=== PATIENT | female | born 1995 | race Caucasian/White ===

== ENCOUNTER 2017-01-17 14:37 | Emergency (ER) | payer BC ==
[~2017-01-17] VITALS: Wt 73.5 kg
--- NOTE | 2017-01-17 16:52 | ERD ---
ER Documentation Chief Complaint Date/Time DATE: 01/17/17 TIME: 16:47 Chief Complaint NUMBNESS, WEAKNESS AND SLURRED SPEECH 1 HR AGO HPI This is a 21-year-old female that presents to the ER complaining of a pressure- like headache which she has been for the last week. Patient states that today the headache broke, however she began to feel bilateral facial weakness and experienced slurred speech. Patient states that she was eating something and the food however mild secondary to weakness. Patient denies any upper or lower extremity weakness. She denies any trauma. She does not have any fevers or chills. She has not had any cough or cold symptoms. Patient denies any chest pain or shortness of breath. Patient did not lose consciousness, she denies nausea or vomiting. Patient has a past medical history Hereditary Coproporphyria. She is currently being seen by a recreation therapist and recently came back from [facility] in hopes of starting treatment for her genetic disorder. Patient has attacks which consist of labile hypertension, tachycardia, constipation or diarrhea and headaches. Patient has not initiated any treatments thus far and was first diagnosed in 2014. ROS 12 point review of systems was done, all negative except per HPI. Medications Home Meds Reported Medications Lorazepam* (Ativan*) 0.5 Mg Tablet, 0.5 MG PO NEEDED Y for ANXIETY, #30 TAB 01/17/17 Allergies Allergies: Coded Allergies: atenolol (Verified Allergy, Unknown, 01/17/17) bupivacaine (Verified Allergy, Unknown, 01/17/17) cephalexin (Verified Allergy, Unknown, 01/17/17) diltiazem (Verified Allergy, Unknown, 01/17/17) doxazosin (Verified Allergy, Unknown, 01/17/17) lidocaine (Verified Allergy, Unknown, 01/17/17) metoprolol (Verified Allergy, Unknown, 01/17/17) PMhx/Soc Hx Miscellaneous Medical Probl: Yes (porphyria) Physical Exam Vitals Vital Signs Date Time Temp Pulse Resp B/P Pulse Ox O2 Delivery O2 Flow Rate FiO2 01/17/17 18:35 97.9 105 18 133/82 99 Room Air 01/17/17 14:40 98.0 117 18 143/83 99 Physical Exam GENERAL: The patient is well developed and appropriate for usual state of health , in no apparent distress. HEENT: Atraumatic. Conjunctivae are pink. Pupils equal, round, and reactive to light. Extraocular muscles are grossly intact. Bilateral tympanic membranes are clear with no evidence of erythema, bulging or perforation. No sinus tenderness. NECK: C-spine is soft and supple. There is no cervical lymphadenopathy. CHEST: Clear to auscultation bilaterally. There are no rales, wheezes or rhonchi. HEART: Regular rate and rhythm. No murmurs, clicks, rubs or gallops. EXTREMITIES: Equal pulses bilaterally. There is no peripheral clubbing, cyanosis or edema. No focal swelling or erythema. Full range of motion. Grossly neurovascularly intact. NEURO: Alert and oriented. Cranial nerves II through XII are intact. Motor strength in all 4 extremities with 5/5 strength. Sensation grossly intact. Normal speech and gait. Negative [place]. +2 DTRs. SKIN: There is no apparent rash or petechia. The skin is warm and dry. Result Diagram: 01/17/17 1700 01/17/17 1700 Results 24 hrs Laboratory Tests Test 01/17/17 17:00 White Blood Count 13.010^3/ul Red Blood Count 5.0910^6/ul Hemoglobin 13.9g/dl Hematocrit 42.3% Mean Corpuscular Volume 83.1fl Mean Corpuscular Hemoglobin 27.3pg Mean Corpuscular Hemoglobin Concent 32.9g/dl Red Cell Distribution Width 12.3% Platelet Count 63853^3/UL Mean Platelet Volume 10.4fl Neutrophils % 82.6% Lymphocytes % 12.1% Monocytes % 4.5% Eosinophils % 0.0% Basophils % 0.4% Nucleated Red Blood Cells % 0.0/100WBC Neutrophils # 10.810^3/ul Lymphocytes # 1.610^3/ul Monocytes # 0.610^3/ul Eosinophils # 0.010^3/ul Basophils # 0.110^3/ul Nucleated Red Blood Cells # 0.010^3/ul Prothrombin Time 13.1Sec Prothrombin Time Ratio 1.0 INR International Normalized Ratio 0.99 Activated Partial Thromboplast Time 29.4Sec Sodium Level 143mmol/L Potassium Level 4.0mmol/L Chloride Level 105mmol/L Carbon Dioxide Level 26mmol/L Anion Gap 16 Blood Urea Nitrogen 5mg/dl Creatinine 0.59mg/dl Glucose Level 134mg/dl Calcium Level 9.5mg/dl Total Bilirubin 0.2mg/dl Direct Bilirubin 0.00mg/dl Indirect Bilirubin 0.2mg/dl Aspartate Amino Transf (AST/SGOT) 18IU/L Alanine Aminotransferase (ALT/SGPT) 30IU/L Alkaline Phosphatase 61IU/L Total Protein 8.2g/dl Albumin 4.8g/dl Globulin 3.40g/dl Albumin/Globulin Ratio 1.41 Current Medications Medications (Trade) Dose Ordered Sig/Jose Route PRN Reason Start Time Stop Time Status Last Admin Dose Admin Sodium Chloride (NS) 500 ml @ 500 mls/hr Q1H STAT IV 01/17/17 23:02 01/18/17 00:01 Procedures/MDM Patient continues to have severe headache, patient refuses to take Ativan which helps her with her headaches. Mother and patient are concerned about increased intracranial pressure. I discussed this case with my supervising physician Dr. Aldana. Patient will be sent to ER 1 for further evaluation and lumbar puncture. Departure Diagnosis: Primary Impression: Headache Condition: Stable CHANG ADAMS Jan 17, 2017 16:52
--- NOTE | 2017-01-17 17:24 | RADRPT ---
PROCEDURE: CT Brain without contrast. CLINICAL INDICATION: Headache, facial droop, and slurred speech. TECHNIQUE: A CT of the brain without contrast was performed utilizing axial sections from the skul l base through the vertex. The patient was scanned without intravenous contrast enhancement. [place] l and coronal reformatted images were obtained using the data from the axial images. Total exam DLP is 630.20 mGy-cm. CTDIvol is 44.52 mGy. One or more of the following dose reduction techniques we re used: Automated exposure control, adjustment of the mA and/or kV according to patient size, use o f iterative reconstruction technique. COMPARISON: None available FINDINGS: There is normal toribio-white matter differentiation. The ventricles and cisterns are normal. There is no intracranial hemorrhage or space-occupying lesion. There is no skull fracture or lytic lesion. IMPRESSION: 1. Normal noncontrast CT scan of the brain. 2. No intracranial hemorrhage. RPTAT: QQ .Jas Miller MD, MD Date Time Electronically viewed and signed by .Jas Miller MD, on 01/17/2017 17:24 .R/
[2017-01-17 17:29] LABS: BASOPHIL # 0.1 10^3/ul (0.0-0.1); BASOPHILS % 0.4 % (0.0-2.0); HEMATOCRIT 42.3 % (37.0-47.0); HEMOGLOBIN 13.9 g/dl (12.0-16.0); LYMPHOCYTES # 1.6 10^3/ul (0.8-2.9); LYMPHOCYTES % 12.1 % (15.0-51.0); MEAN CORPUSCULAR HEMOGLOBIN 27.3 pg (29.0-33.0); MEAN CORPUSCULAR HGB CONC 32.9 g/dl (32.0-37.0); MEAN CORPUSCULAR VOLUME 83.1 fl (82.0-101.0); MEAN PLATELET VOLUME 10.4 fl (7.4-10.4); MONOCYTE # 0.6 10^3/ul (0.3-0.9); MONOCYTES % 4.5 % (0.0-11.0); NEUTROPHIL # 10.8 10^3/ul (1.6-7.5); NEUTROPHILS % 82.6 % (39.0-77.0); PLATELET COUNT 409 10^3/UL (140-415); RED BLOOD COUNT 5.09 10^6/ul (4.20-5.40); RED CELL DISTRIBUTION WIDTH 12.3 % (11.5-14.5)
[2017-01-17 17:46] LABS: INR 0.99; PARTIAL THROMBOPLASTIN TIME 29.4 Sec (25.0-35.0); PROTIME 13.1 Sec (12.2-14.2)
[2017-01-17 17:47] LABS: ALBUMIN 4.8 g/dl (3.3-4.9); ALBUMIN/GLOBULIN RATIO 1.41; BILIRUBIN,INDIRECT 0.2 mg/dl (0-1.1); BILIRUBIN,TOTAL 0.2 mg/dl (0.2-1.3); CALCIUM 9.5 mg/dl (8.4-10.2); CREATININE 0.59 mg/dl (0.44-1.00); TOTAL PROTEIN 8.2 g/dl (6.1-8.1)
[2017-01-17] MEDS ORDERED: LORA-441 PO (19:30)
[2017-01-17] MEDS ORDERED: SOD CHLORIDE 0.9% 500 ML IV STA (23:02)
[2017-01-17 23:30] VITALS: BP 120/75; PULSE 89; RESP 18; TEMP 97.9
--- NOTE | 2017-01-17 23:53 | ERA ---
ER Documentation Chief Complaint Date/Time DATE: 01/17/17 TIME: 23:51 Chief Complaint NUMBNESS, WEAKNESS AND SLURRED SPEECH 1 HR AGO HPI This is a 21-year-old female with a past medical history of significant anxiety , migraines, chronic abdominal pain, recently diagnosed with hereditary coproporphyria who presents with sharp waxing waning pressure-like bilateral frontal headache, worst headache of her life, beginning about a week ago. The patient reports that it started with a horrible headache, and it has not gone away. Sometimes it improves on its own, but it recurs shortly after. Today, that patient felt that perhaps it was waning. However, she then began to feel bilateral facial weakness and numbness, and she experienced an episode of slurred speech. Patient states that she was eating something and almost choked secondary to weakness. The bilateral facial deficits lasted only a few minutes before remitting on their own, after which the headache recurred. It was at this point that she and her mother felt she needed evaluation in the ER. The patient denies any trauma. She does not have any fevers or chills. She has not had any cough or cold symptoms. Patient denies any chest pain or shortness of breath. Patient did not lose consciousness. She does endorse chronic abdominal pain that is currently unchanged, but she denies nausea or vomiting. She did not have any other focal deficits and she currently denies any weakness or numbness or tingling to the face or extremities. Patient's diagnosis of hereditary Coproporphyria has been recent. She is currently being seen by a surgical technology instructor and recently came back from [facility] in hopes of starting treatment for her genetic disorder. Patient has attacks which consist of labile hypertension, tachycardia, constipation or diarrhea and headaches. Patient has not initiated any treatments thus far and was first diagnosed in 2014. She was actually scheduled to be evaluated by her surgical technology instructor today when these symptoms above occurred and the headaches seem to get worse. ROS All systems reviewed and are negative except as per history of present illness. Medications Home Meds Reported Medications Lorazepam* (Ativan*) 0.5 Mg Tablet, 0.5 MG PO NEEDED Y for ANXIETY, #30 TAB 01/17/17 Allergies Allergies: Coded Allergies: atenolol (Verified Allergy, Unknown, 01/17/17) bupivacaine (Verified Allergy, Unknown, 01/17/17) cephalexin (Verified Allergy, Unknown, 01/17/17) diltiazem (Verified Allergy, Unknown, 01/17/17) doxazosin (Verified Allergy, Unknown, 01/17/17) lidocaine (Verified Allergy, Unknown, 01/17/17) metoprolol (Verified Allergy, Unknown, 01/17/17) PMhx/Soc Hx Neurological Disorder: Yes (Migraines) Hx Respiratory Disorders: No Hx Cardiac Disorders: Yes (Hypertension) Hx Psychiatric Problems: Yes (Anxiety) Hx Miscellaneous Medical Probl: Yes (porphyria) Hx Alcohol Use: No Hx Substance Use: No Hx Tobacco Use: No FmHx Family History: No coronary disease, No diabetes Physical Exam Vitals Vital Signs Date Time Temp Pulse Resp B/P Pulse Ox O2 Delivery O2 Flow Rate FiO2 01/17/17 18:35 97.9 105 18 133/82 99 Room Air 01/17/17 14:40 98.0 117 18 143/83 99 Physical Exam Const: NAD, well developed, well-nourished Head: Atraumatic Eyes: Normal Conjunctiva, EOMI, no photophobia examination with light ENT: Normal External Ears, Nose and Mouth. Neck: Full range of motion..~ No meningismus. Resp: Clear to auscultation bilaterally Cardio: Regular rate and rhythm, no murmurs Abd: Soft, non tender, non distended. Normal bowel sounds Skin: No petechiae or rashes Back: No midline or flank tenderness Ext: No cyanosis, or edema Neur: Awake and alert, cranial nerves intact, normal strength, normal sensation, normal coordination Psych: Anxious appearing Result Diagram: 01/17/17 1700 01/17/17 170 Results 24 hrs Laboratory Tests Test 01/17/17 17:00 White Blood Count 13.010^3/ul Red Blood Count 5.0910^6/ul Hemoglobin 13.9g/dl Hematocrit 42.3% Mean Corpuscular Volume 83.1fl Mean Corpuscular Hemoglobin 27.3pg Mean Corpuscular Hemoglobin Concent 32.9g/dl Red Cell Distribution Width 12.3% Platelet Count 97025^3/UL Mean Platelet Volume 10.4fl Neutrophils % 82.6% Lymphocytes % 12.1% Monocytes % 4.5% Eosinophils % 0.0% Basophils % 0.4% Nucleated Red Blood Cells % 0.0/100WBC Neutrophils # 10.810^3/ul Lymphocytes # 1.610^3/ul Monocytes # 0.610^3/ul Eosinophils # 0.010^3/ul Basophils # 0.110^3/ul Nucleated Red Blood Cells # 0.010^3/ul Prothrombin Time 13.1Sec Prothrombin Time Ratio 1.0 INR International Normalized Ratio 0.99 Activated Partial Thromboplast Time 29.4Sec Sodium Level 143mmol/L Potassium Level 4.0mmol/L Chloride Level 105mmol/L Carbon Dioxide Level 26mmol/L Anion Gap 16 Blood Urea Nitrogen 5mg/dl Creatinine 0.59mg/dl Glucose Level 134mg/dl Calcium Level 9.5mg/dl Total Bilirubin 0.2mg/dl Direct Bilirubin 0.00mg/dl Indirect Bilirubin 0.2mg/dl Aspartate Amino Transf (AST/SGOT) 18IU/L Alanine Aminotransferase (ALT/SGPT) 30IU/L Alkaline Phosphatase 61IU/L Total Protein 8.2g/dl Albumin 4.8g/dl Globulin 3.40g/dl Albumin/Globulin Ratio 1.41 Current Medications Medications (Trade) Dose Ordered Sig/Jose Route PRN Reason Start Time Stop Time Status Last Admin Dose Admin Sodium Chloride (NS) 500 ml @ 500 mls/hr Q1H STAT IV 01/17/17 23:02 01/18/17 00:01 DC Procedures/MDM MDM Patient's presentation warrants further investigation. The patient is presenting with the worst headache of her life with a transient episode of neurologic deficits today. A full workup will need to be performed. The patient does not endorse a thunderclap like headache that was the worst headache of her life immediately on onset. However, the patient is significantly concerned as she has had many headaches in the past related to her migraines, but that this 1 feels quite different. She does not have any current neurologic deficits, but this episode was concerning. Complex migraine is a possibility, but it is a diagnosis of exclusion. Given the patient's diagnosis of porphyria, transient vasospasm is a possibility as well. A CT will be obtained to evaluate for any signs of ischemia. Blood work will be obtained to evaluate for infection or metabolic abnormality. If the patient's CT scan is negative, I will recommend a lumbar puncture for evaluation of subarachnoid hemorrhage versus infection. LABS The patient's blood work was obtained and reviewed. Patient does have a leukocytosis with mild shift. The patient is afebrile, and I do not suspect a systemic infection. The patient does not appear systemically ill. The patient' s leukocytosis may be reactive given her stress of a headache. She will be given precautions regarding infectious signs to follow-up on. The patient is not anemic today. The patient's platelet count is unremarkable. The patient's CMP shows no signs of metabolic or electrolyte abnormality. The patient has normal renal and hepatic function testing. The patient has no signs of coagulopathy in her blood work. EKG EKG read by me: Rate/Rhythm: Regular rhythm, sinus tachycardia at a rate of 109 bpm Intervals: Normal [place]: Normal T-wave inversions in leads V1 and V2 but no other ST or T-wave changes concerning for acute coronary syndrome Impression: No evidence of acute ischemia IMAGING CT HEAD FINDINGS: There is normal toribio-white matter differentiation. The ventricles and cisterns are normal. There is no intracranial hemorrhage or space-occupying lesion. There is no skull fracture or lytic lesion. IMPRESSION: Normal noncontrast CT scan of the brain. No intracranial hemorrhage. Electronically viewed and signed by .Jas Miller MD, MD on 01/17/2017 17:24 TREATMENT/DISPOSITION Aside from her leukocytosis, which I believed to be reactive, her blood work is reassuring. Her CT imaging is also reassuring. The patient's EKG shows sinus tachycardia but otherwise it shows no signs of a cardiac etiology. The patient does have a history of anxiety and she appears quite anxious in the room. She was offered Ativan but she declined. Found out later that the patient took a half dose of her own oral Ativan while in the emergency department. She was offered medications for her headache, but she declined these as well. She even refused Tylenol. The patient has had many reactions to medications in the past related to her porphyria, and she is hesitant to try anything to help with the pain. It is strange that the symptoms arose on the same day as her follow-up appointment with her surgical technology instructor. It is unclear if there could be a psychiatric component to this. After the patient took the Ativan, her tachycardia resolved and her headache improved mildly. Objectively, the patient does not have any findings consistent with a neurologic deficit at this time, which is reassuring. Her reported transient facial deficits could very well correlate with complex migraine. The patient's mother does endorse having symptoms similar to that, but she has never seen them and her daughter. A prolonged discussion was had regarding the need to do an LP. Given that the patient felt that this headache was different than the worst of her life, and LP was recommended. The risks and benefits were discussed with the patient and she agreed to proceed with the procedure. Lumbar Puncture by me: Patient consented, time out performed, sterilely prepped/draped, anesthetized locally. Anesthesia: Patient declined Location: One interspace below the iliac crest Technique: 22 gauge needle with stylet for entry and removal of needle Results: Clear CSF fluid, approximately 6 mL were collected and a total of 4 tubes No post procedure complications, bleeding, numbness or weakness. At time of signout, the patient's disposition was pending the results of her lumbar puncture. Given that the patient had neurologic deficits, I felt that the patient should be at minimum observed during a hospital admission with possible neurologic consultation and potentially obtaining an MRI in the hospital for further evaluation. The patient and the patient's mother declined at this time. They decided that as long as the CSF results were normal that they would follow-up with her neurologist as well as her surgical technology instructor first thing tomorrow. The patient and her mother understand that a transient ischemic attack or seizure or other possible neurologic etiologies cannot all be elucidated in the emergency department, and the risk of is present without further evaluation to rule out other emergent etiologies. With this understanding, the patient and her mother would like to leave AGAINST MEDICAL ADVICE as long as the CSF results are unremarkable. The patient was signed out to Dr. Villegas at 12 AM on January 18, 2017 pending the CSF results. Departure Diagnosis: Primary Impression: Headache Additional Impression: Leukocytosis Qualified Code: D72.820 - Lymphocytosis Condition: LEANN Li MD Jan 17, 2017 23:53
[2017-01-18 00:16] LABS: GLUCOSE,CSF 79 mg/dl (50-80)
[2017-01-18 00:25] LABS: CSF COLOR COLORLESS; CSF#TUBE COUNT TUBE#1; CSF#TUBES REC'D 4
[2017-01-18 00:26] LABS: CSF COLOR COLORLESS; CSF#TUBE COUNT TUBE#4; CSF#TUBES REC'D 4
--- NOTE | 2017-01-18 00:31 | QN ---
Documentation Comment The patient was signed out to me by Dr Aldana, pending on the CSF fluid analysis. However, the patient eloped from the ED prior to the result. She was in stable condition according to the RN JOLENE MCCORMICK MD Jan 18, 2017 00:31
[2017-01-21 06:02] LABS: HERPES SIMPLEX 1 DNA NOT DETECTED; HERPES SIMPLEX 2 DNA NOT DETECTED; HERPES SIMPLEX PCR SOURCE CEREBROSPINAL FLUID
== END 2017-01-18 | disposition left against medical advice (07) ==
LOC: FTE 14:37 → E/R 01-18
DX: R51 Headache (principal); R40.2252 Coma scale, best verbal response, oriented, at arrival to emergency department; D72.820 Lymphocytosis (symptomatic); I10 Essential (primary) hypertension; R40.2142 Coma scale, eyes open, spontaneous, at arrival to emergency department; R40.2362 Coma scale, best motor response, obeys commands, at arrival to emergency department
CPT/HCPCS: 36415; 70450; 80053; 82945; 84157; 85025; 85610; 85730; 87070; 87529; 89051; 93005; 99285; J7040

== ENCOUNTER 2017-01-18 02:07 | Inpatient (IN) | payer BC ==
[~2017-01-18] VITALS: Ht 165.1 cm; Wt 73.4 kg
[~2017-01-18 02:07] MED LIST: LORA-441 PO
--- NOTE | 2017-01-18 02:18 | ERA ---
ER Documentation Chief Complaint Date/Time DATE: 01/18/17 TIME: 02:16 Chief Complaint Headache HPI The patient is a 21-year-old female, presenting with intermittent headache for 1 week. The headache is diffuse on the top of her head, she had similar symptoms previously. She complained of having had a slurred speech at around 1: 30 PM today for 1-2 minutes and resolved by itself while she was on her way to see her protection engineer for treatment of her porphyria. She was seen by the emergency physician Dr. Aldana to order extensive workup that was unremarkable including spinal tap. She is eloped from the ER after the spinal tap. She came back to the ER because of worsening headache after the spinal tap. She denies fever, chills, blurry vision, neck pain, chest pain, abdominal pain, vomiting, dysuria. She, multiple loose bowel movement today, denies hematochezia. She does not smoke nor drink nor use illicit drug, however has increased stress in her life. Past medical history: Anxiety, porphyria, tension headache, history of chronic abdominal pain Past surgical history: None ROS All systems reviewed and are negative except as per history of present illness. Medications Home Meds Reported Medications Lorazepam* (Ativan*) 0.5 Mg Tablet, 0.5 MG PO NEEDED Y for ANXIETY, #30 TAB 01/17/17 Allergies Allergies: Coded Allergies: atenolol (Verified Allergy, Unknown, 01/17/17) bupivacaine (Verified Allergy, Unknown, 01/17/17) cephalexin (Verified Allergy, Unknown, 01/17/17) diltiazem (Verified Allergy, Unknown, 01/17/17) doxazosin (Verified Allergy, Unknown, 01/17/17) lidocaine (Verified Allergy, Unknown, 01/17/17) metoprolol (Verified Allergy, Unknown, 01/17/17) PMhx/Soc Hx Neurological Disorder: Yes (Migraines) Hx Respiratory Disorders: No Hx Cardiac Disorders: Yes (Hypertension) Hx Psychiatric Problems: Yes (Anxiety) Hx Miscellaneous Medical Probl: Yes (porphyria) Hx Alcohol Use: No Hx Substance Use: No Hx Tobacco Use: No Physical Exam Vitals Vital Signs Date Time Temp Pulse Resp B/P Pulse Ox O2 Delivery O2 Flow Rate FiO2 01/18/17 02:17 97.8 103 20 138/84 100 Physical Exam Const: No acute distress. Head: Atraumatic. Eyes: Normal Conjunctiva. ENT: Normal External Ears, Nose and Mouth. Neck: Full range of motion. No meningismus. Resp: Clear to auscultation bilaterally. Cardio: Regular rate and rhythm. Abd: Soft, non distended, normal bowel sounds, non tender. Skin: No petechiae or rashes. Back: No midline or flank tenderness. Ext: No cyanosis, or edema. Neur: Awake and alert. No focal deficit Psych: Normal Mood and Affect. Results 24 hrs Current Medications Medications (Trade) Dose Ordered Sig/Jose Route PRN Reason Start Time Stop Time Status Last Admin Dose Admin Acetaminophen/ Hydrocodone Bitart ([place] (10/325)) 1 tab ONCE ONCE PO 01/18/17 03:00 01/18/17 03:01 Cancel Ondansetron HCl (Zofran Odt) 4 mg ONCE STAT ODT 01/18/17 02:37 01/18/17 02:38 Cancel Acetaminophen (Tylenol Tab) 650 mg ONCE ONCE PO 01/18/17 03:00 01/18/17 03:01 DC 01/18/17 02:47 Lorazepam (Ativan) 1 mg ONCE ONCE PO 01/18/17 03:00 01/18/17 03:01 DC 01/18/17 02:47 Procedures/MDM . MEDICAL MAKING DECISION: The patient is a 21-year-old female, presenting with post spinal tap headache. She was treated with Tylenol because she did not want anything stronger she was also treated with Ativan 1 mg p.o. for her acute anxiety with good response. She will be admitted for further evaluation The differential diagnoses considered include but are not limited to viral/ bacterial meningitis, anxiety attack, panic attack, acute porphyria, subarachnoid hemorrhage, occult trauma, CVA, meningitis, encephalitis, hypertension, tension, migraine, cluster, narcotic withdrawal, cervical spine disease. Departure Diagnosis: Primary Impression: Headache Additional Impressions: Anxiety Porphyria Condition: Stable Comments I discussed the findings with the patient. I discussed the patient with The on- call hospitalist Dr. Bennett at 3:05 AM who was made aware of the lab, the treatment, the patient condition. The patient is admitted to [facility] The patient's blood pressure was elevated (>120/80) but appears stable without evidence of hypertension emergency or urgency. The patient was counseled about the risks of hypertension and urged to pursue outpatient monitoring and therapy within a week with their primary care physician. JOLENE MCCORMICK MD Jan 18, 2017 02:18
[2017-01-18] MEDS ORDERED: ONDANSETRON (ODT) 4 MG TAB ODT STA (02:37)
[2017-01-18] MEDS ORDERED: HYDROCODONE/APAP (10/325) TAB PO ONE (03:00)
[2017-01-18] MEDS ORDERED: ACETAMINOPHEN 325 MG TAB PO ONE (03:00)
[2017-01-18] MEDS ORDERED: LORAZEPAM 1 MG TAB PO ONE (03:00)
[2017-01-18 04:00] VITALS: BP 122/73; RESP 21; TEMP 97.8
[2017-01-18] MEDS ORDERED: BISACODYL (EC) 5 MG TAB PO PRN (04:00)
[2017-01-18] MEDS ORDERED: ACETAMINOPHEN 325 MG TAB PO PRN (04:00)
[2017-01-18] MEDS ORDERED: DOCUSATE SODIUM 100 MG CAP PO PRN (04:00)
[2017-01-18] MEDS ORDERED: HYDROCODONE/APAP (5/325) TAB PO PRN (04:00)
[2017-01-18] MEDS ORDERED: ONDANSETRON 4 MG INJ IV PRN (04:00)
[2017-01-18] MEDS ORDERED: NACL 0.9% 3 ML SYG IV SCH (04:00)
--- NOTE | 2017-01-18 07:42 | HP ---
Date/Time of Note Date/Time of Note DATE: 01/18/17 TIME: 07:24 Assessment/Plan VTE Prophylaxis VTE Prophylaxis Intervention: SCD's Assessment/Plan Chief Complaint/Hosp Course this is a 21-year-old female being admitted to the [facility] floor for: #1 cephalgia: Post lumbar headache versus anxiety versus tension headache: CSF sample from lumbar puncture did not show any signs concerning for any infection. Patient reportedly received relief from Ativan which does make this a possible anxiety component. She is adamant that it is her Procardia this causing the symptoms. She did report neurological symptoms will also obtain an MRI in the a.m. Will provide oral analgesics for possible post lumbar headache. If the headaches continue she may need a blood patch placed. I do feel though that there is a lot of anxiety involved in this especially when she describes headaches with tachycardia and elevated blood pressure. Consider neurology consult. Caffeine was also on an alternative to try however patient reports that she may be have headache secondary to that so we will hold off on using caffeine. #2 hereditary porphyria: Follow-up with hematology as an outpatient. #3 leukocytosis: Patient does not have any fevers at this time and CSF findings are within normal values. And in no other signs for any infection. This likely is reactive. Will continue to monitor this. #4 DVT and GI prophylaxis: SCDs, acid mary Further treatment strategy will be implemented as per the clinical course. Problems: HPI/ROS Admit Date/Time Admit Date/Time Jan 18, 2017 at 03:07 Hx of Present Illness History was obtained from the patient as well as the ED physician documentation Chief complaint: Headache The patient is a 21-year-old female, presenting with intermittent headache for 1 week. The headache is diffuse on the top of her head, she had similar symptoms previously. She complained of having had a slurred speech and masked facies at around 1:30 PM on 01/17 for 1-2 minutes and resolved by itself while she was on her way to see her pathology collector for treatment of her porphyria. She was seen by the emergency physician Dr. Aldana to order extensive workup that was unremarkable including spinal tap. She is eloped from the ER after the spinal tap. She came back to the ER because of worsening headache after the spinal tap. She denies fever, chills, blurry vision, neck pain, chest pain, abdominal pain, vomiting, dysuria. She, multiple loose bowel movement today, denies hematochezia. She does not smoke nor drink nor use illicit drug, however has increased stress in her life. Of note patient states that her symptoms usually resolve with Ativan that she does take at home. She received Ativan in the ED as well and that helped with her headache. Allergies: Atenolol, bupivacaine, cephalexin, diltiazem, doxazosin, lidocaine, metoprolol Medications: See LAURA JEFFERSON Const: As per HPI Eyes : No pain discharge or redness or change in visual acuity ENT: No pain, sore throat, congestion, congestion, dysphagia or discharge Respiratory: No shortness of breath, cough, sputum, wheezing, or pleuritic pain Cardiovascular: No chest pain, palpitation, PND, or edema GI : no change in appetite, abdominal pain, nausea, vomiting, diarrhea, constipation, or change in the color his stool Genitourinary: No dysuria, hematuria, flank pain , discharge or CVA tenderness Musculoskeletal: No joint pain, back pain, neck pain, restricted range of motion in neck or joints Skin: No rash, bruising or hives Neuro: As per HPI Endocrine: No polyuria, polydipsia, temperature intolerance Psych: No hallucination, depression, anxiety or suicidal ideation PMH/Family/Social Past Medical History Anxiety, hereditary porphyria, tension headache, history of chronic abdominal pain Past Surgical History Right hand cyst removal Family History Significant Family History: other (Hereditary porphyria) Social History Alcohol Use: none Smoking Status: Never smoker Drug Use: none Exam/Review of Systems Vital Signs Vitals Vital Signs Date Time Temp Pulse Resp B/P Pulse Ox O2 Delivery O2 Flow Rate FiO2 01/18/17 04:00 97.8 91 18 112/65 98 Room Air Exam Exam General: Patient is a pleasant female was lying in bed initially sleeping comfortably, she was easily arousable and pleasant HEENT: Atraumatic, normocephalic. The pupils are equal, round and reactive. Extraocular motor are intact Neck: Supple with full range of motion. No rigidity or meningismus Lungs: Clear to auscultation bilaterally no crackles rales or wheezing Heart: Normal S1-S2, Regular rhythm and rate. No murmur, S3, or S4 Abdomen: Soft , nontender, nondistended , bowel sounds are present. No guarding no rebound tenderness , No masses or organomegaly. No costovertebral temporal angle mass Extremities: Normal to inspection, no edema no cyanosis Neurologic: Normal mental status, speech normal, cranial nerves II through XII are intact, motor and sensory are intact, no focal weakness Additional Comments PROCEDURE: CT Brain without contrast. CLINICAL INDICATION: Headache, facial droop, and slurred speech. TECHNIQUE: A CT of the brain without contrast was performed utilizing axial sections from the skull base through the vertex. The patient was scanned without intravenous contrast enhancement. Sagittal and coronal reformatted images were obtained using the data from the axial images. Total exam DLP is 630.20 mGy-cm. CTDIvol is 44.52 mGy. One or more of the following dose reduction techniques were used: Automated exposure control, adjustment of the mA and/or kV according to patient size, use of iterative reconstruction technique. COMPARISON: None available FINDINGS: There is normal toribio-white matter differentiation. The ventricles and cisterns are normal. There is no intracranial hemorrhage or space-occupying lesion. There is no skull fracture or lytic lesion. IMPRESSION: 1. Normal noncontrast CT scan of the brain. 2. No intracranial hemorrhage. RPTAT: QQ .Jas Miller MD, MD Date Time Electronically viewed and signed by .Jas Miller MD, MD on 01/17/2017 17:24 .R/ CC: CHANG ADAMS Medications Medications Current Medications Ondansetron HCl (Zofran Inj) 4 mg Q6H PRN IV NAUSEA AND/OR VOMITING; Start at 04:00 Acetaminophen (Tylenol Tab) 650 mg Q6H PRN PO PAIN LEVEL 1-3 OR FEVER; Start at 04:00 Acetaminophen/ Hydrocodone Bitart ([place] (5/325)) 1 tab Q6H PRN PO MODERATE PAIN LEVEL 4-6; Start 01/18/17 at 04:00 Docusate Sodium (Colace) 100 mg Q12H PRN PO CONSTIPATION; Start 01/18/17 at 04: 00 Bisacodyl (Dulcolax) 5 mg DAILY PRN PO CONSTIPATION; Start 01/18/17 at 04:00 Famotidine (Pepcid) 20 mg Q12 PO ; Start 01/18/17 at 09:00 PRATIK VIZCAINO Jan 18, 2017 07:36
[2017-01-18 08:30] VITALS: Ht 165.1 cm; Wt 73.4 kg
[2017-01-18] MEDS: FAMOTIDINE 20 MG TAB PO SCH ×2 (08:42→20:26)
[2017-01-18 09:15] VITALS: BP 125/75; PULSE 97; RESP 16
[2017-01-18] MEDS: LORAZEPAM 0.5 MG TAB PO PRN ×2 (10:22→20:29)
[2017-01-18 14:54] VITALS: BP 111/70; RESP 16
--- NOTE | 2017-01-18 15:27 | CONS ---
Date/Time of Note Date/Time of Note DATE: 01/18/17 TIME: 15:20 Assessment/Plan Assessment/Plan Chief Complaint/Hosp Course Intermittent headaches in a patient of Porphyria Problems: Additional Assessment/Plan The patient is a 21-year-old female, presenting with intermittent headache for 1 week. The headache is diffuse on the top of her head, she had similar symptoms previously. She complained of having had a slurred speech and masked facies at around 1:30 PM on 01/17 for 1-2 minutes and resolved by itself while she was on her way to see her archival studies professor for treatment of her porphyria. She was brought into emergency room by her mother and extensive workup that was unremarkable including spinal tap. She eloped from the ER after the spinal tap. She came back to the ER because of worsening headache after the spinal tap. She denies fever, chills, blurry vision, neck pain, chest pain, abdominal pain, vomiting, dysuria. Of note is that her symptoms usually resolve with Ativan that she does take at home. She received Ativan in the ED as well and that helped with her headache. CT scan of the brain was unremarkable. Neurological examination is nonfocal. My impression is that she likely has anxiety and possibly stress related headaches. Plan 1 we will check MRI of the brain which was done today 2 start on nortriptyline 10 mg 1 capsule p.o. nightly as a headache prophylaxis 3 discussed with patient's mother who is present in the room 4 will follow Consultation Date/Type/Reason Admit Date/Time Jan 18, 2017 at 03:07 Date of Consultation: Jan 18, 2017 Type of Consultation: Neurology Reason for Consultation Headache Referring Provider: JAMIR FARIA MD Hx of Present Illness The patient is a 21-year-old female, presenting with intermittent headache for 1 week. The headache is diffuse on the top of her head, she had similar symptoms previously. She complained of having had a slurred speech and masked facies at around 1:30 PM on 01/17 for 1-2 minutes and resolved by itself while she was on her way to see her archival studies professor for treatment of her porphyria. She was brought into emergency room by her mother and extensive workup that was unremarkable including spinal tap. She eloped from the ER after the spinal tap. She came back to the ER because of worsening headache after the spinal tap. She denies fever, chills, blurry vision, neck pain, chest pain, abdominal pain, vomiting, dysuria. Of note is that her symptoms usually resolve with Ativan that she does take at home. She received Ativan in the ED as well and that helped with her headache. CT scan of the brain was unremarkable. Constitutional: improved Eyes: no complaints ENT: no complaints Respiratory: no complaints Cardiovascular: no complaints Gastrointestinal: no complaints Genitourinary: no complaints Musculoskeletal: no complaints Skin: no complaints Neurologic: no complaints Endocrine: no complaints Lymphatic: no complaints Psychological: nl mood/affect, no complaints Immunologic: no complaints Past Medical History Medical History: other (Porphyria) Social History Alcohol Use: none Smoking Status: Never smoker Drug Use: none Exam/Review of Systems Vital Signs Vitals Vital Signs Date Time Temp Pulse Resp B/P Pulse Ox O2 Delivery O2 Flow Rate FiO2 01/18/17 14:54 97.6 81 16 111/70 96 01/18/17 09:15 Room Air Exam Constitutional: alert, oriented, well developed Psych: nl mood/affect, no complaints Head: atraumatic, normocephalic Eyes: EOMI, nl conjunctiva, nl lids ENMT: nl external ears & nose, nl lips & teeth, nl nasal mucosa & septum Neck: non-tender, supple Respiratory: clear to auscultation, normal air movement Cardiovascular: nl pulses, regular rate and rhythm Gastrointestinal: nl liver, spleen, non-tender, soft Extremities: normal pulses Neurological: 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 intact, nl mental status, nl speech, nl strength Skin: nl turgor, rash or lesions Lymph: nl lymph nodes Medications Medications Current Medications Ondansetron HCl (Zofran Inj) 4 mg Q6H PRN IV NAUSEA AND/OR VOMITING; Start at 04:00 Acetaminophen (Tylenol Tab) 650 mg Q6H PRN PO PAIN LEVEL 1-3 OR FEVER; Start at 04:00 Acetaminophen/ Hydrocodone Bitart ([place] (5/325)) 1 tab Q6H PRN PO MODERATE PAIN LEVEL 4-6; Start 01/18/17 at 04:00 Docusate Sodium (Colace) 100 mg Q12H PRN PO CONSTIPATION; Start 01/18/17 at 04: 00 Bisacodyl (Dulcolax) 5 mg DAILY PRN PO CONSTIPATION; Start 01/18/17 at 04:00 Famotidine (Pepcid) 20 mg Q12 PO ; Start 01/18/17 at 09:00 DOROTEO DOLAN MD Jan 18, 2017 15:27
--- NOTE | 2017-01-18 16:20 | PN ---
Date/Time of Note Date/Time of Note DATE: 01/18/17 TIME: 16:14 Assessment/Plan VTE Prophylaxis VTE Prophylaxis Intervention: ambulation Lines/Catheters IV Catheter Type (from Nrs): Saline Lock Urinary Cath still in place: No Assessment/Plan Assessment/Plan 1. Intractable headache - Patient states she has had a CRUM since prior to admission and has worsened since LP was performed - Usually takes Ativan for relief - Neurology on board and recommendations appreciated. - MRI performed and awaiting results - CT scan negative for any acute abnormalities - Amitriptyline started 2. Hereditary Porphyria - Mother concerned patient is in an acute exacerbation - Heme on board and appreciated consultation 3. Dysphagia - Will order swallow eval for further assessment 4. Leukocytosis - Most likely reactive. will follow Subjective 24 Hr Interval Summary Free Text/Dictation patient states she has been experiencing worsening headache as well as difficulty swallowing. She has generalized weakness as well. Parents at bedside. Exam/Review of Systems Vital Signs Vitals Vital Signs Date Time Temp Pulse Resp B/P Pulse Ox O2 Delivery O2 Flow Rate FiO2 01/18/17 14:54 97.6 81 16 111/70 96 01/18/17 09:15 Room Air Exam General: NAD, awake and alert CVS: regular rate and rhythm. no murmurs Lungs: CTA b/l. no wheezes or rhonchi Abdomen: soft NT, ND, no rebound or guarding Ext: moving all extremities. no edema Medications Medications Current Medications Ondansetron HCl (Zofran Inj) 4 mg Q6H PRN IV NAUSEA AND/OR VOMITING; Start at 04:00 Acetaminophen (Tylenol Tab) 650 mg Q6H PRN PO PAIN LEVEL 1-3 OR FEVER; Start at 04:00 Acetaminophen/ Hydrocodone Bitart ([place] (5/325)) 1 tab Q6H PRN PO MODERATE PAIN LEVEL 4-6; Start 01/18/17 at 04:00 Docusate Sodium (Colace) 100 mg Q12H PRN PO CONSTIPATION; Start 01/18/17 at 04: 00 Bisacodyl (Dulcolax) 5 mg DAILY PRN PO CONSTIPATION; Start 01/18/17 at 04:00 Famotidine (Pepcid) 20 mg Q12 PO ; Start 01/18/17 at 09:00 Nortriptyline HCl (Aventyl) 10 mg HS PO ; Start 01/18/17 at 21:00 JAMIR FARIA MD Jan 18, 2017 16:19
--- NOTE | 2017-01-18 16:38 | RADRPT ---
PROCEDURE: MR Brain noncontrast. CLINICAL INDICATION: Headache. Cephalgia. TECHNIQUE: Multiplanar multisequence noncontrast MRI of the brain was performed. COMPARISON: Noncontrast CT of the head from January 17, 2017. FINDINGS: The ventricles and sulci are within normal limits. There is no acute infarction. There is no intracranial hemorrhage or extra-axial fluid collection. There is no mass effect. There is no midline shift. The brainstem is within normal limits. The posterior fossa is unremarkable. The normal intracranial, intravascular flow voids are preserved. There is soft tissue density within the right maxillary sinus which appears to extend into the jonelle x of the right anterior maxillary sinus and is ovoid in appearance measure approximate 2 cm (image 6 series 4). The orbits are grossly unremarkable. There is no destructive osseous lesion. IMPRESSION: 1. No acute infarction or intracranial hemorrhage. 2. Soft tissue density within the right maxillary sinus which appears to extend into the anterior si nus wall which measures 2 cm which is indeterminate. This may represent atypical appearing mucosal t hickening however underlying lesion is not excluded. CT of the facial bones with contrast is recomme nded for further evaluation as clinically warranted. Further findings as detailed above. RPTAT: HVF .Matty Cameron MD, Date Time Electronically viewed and signed by .Matty Cameron MD, on 01/18/2017 16:38 .F/
--- NOTE | 2017-01-18 18:23 | CONS ---
Date/Time of Note Date/Time of Note DATE: 01/18/17 TIME: 18:20 Assessment/Plan Assessment/Plan Chief Complaint/Hosp Course 1. 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 - Mother concerned patient is in an acute exacerbation PROCEED WITH LAB CONFORMATION Urinary porphobilinogen (PBG) AND TOTAL PORPHYRINS CONT WITH EMPIRIC SYMPTOMATIC THERAPY FOR AN ACUTE ATTACK Hospitalization is usually required for acute attacks because it facilitates treatment of severe symptoms; monitoring of respiration, electrolytes, and nutritional status; and the administration of glucose and intravenous administration of hemin SINCE PT'S CONDITION SIGNIFICANTLY IMPROVING WITHOUT SPECIFIC THERAPY WITH HEMIN I WILL NOT PROCEED WITH THIS THEATMENT AT THIS TIME ?Hemin or carbohydrate (glucose) loading are used to sil acute attacks. CONT SYMPTOMATIC TREATMENT D/W PT AND MOTHER IN DETAILS 2 Intractable headache - Patient states she has had a CRUM since prior to admission and has worsened since LP was performed - Usually takes Ativan for relief - Neurology on board and recommendations appreciated. - MRI performed and awaiting results - CT scan negative for any acute abnormalities - Amitriptyline started 3. Dysphagia - swallow eval for further assessment 4. Leukocytosis - Most likely reactive. will follow Problems: Consultation Date/Type/Reason Admit Date/Time Jan 18, 2017 at 03:07 Date of Consultation: Jan 18, 2017 Type of Consultation: hemeonc Reason for Consultation PORPHYRIA Referring Provider: JAMIR FARIA MD Hx of Present Illness The patient is a 21-year-old female, with clinical dx of PORPHYRIA, suspected one yr ago, when she was acutely sick with labile BP and tachycardia. She is being followed by hemaatologist at [facility] - DR DAVE. PER PT AND HER MOTHER - SO FAR ALL DX TESTS WERE NEG FOR PORPHYRIA SOME GENETIC TESTING WHICH WAS DONE LAST MO IN [place] IS ABN, RESULT IS NOT AVAILABLE= PER VERBAL REPORT SHE NEVER HAS BEEN TREATED FOR THIS CONDITION PT presented with intermittent headache for 1 week. The headache is diffuse on the top of her head, she had similar symptoms previously. She complained of having had a slurred speech and masked facies at around 1:30 PM on 01/17 for 1-2 minutes and resolved by itself while she was on her way to see her account general manager for treatment of her porphyria. She was brought into emergency room by her mother and extensive workup that was unremarkable including spinal tap. She eloped from the ER after the spinal tap. She came back to the ER because of worsening headache after the spinal tap. She denies fever, chills, blurry vision, neck pain, chest pain, abdominal pain, vomiting, dysuria. Of note is that her symptoms usually resolve with Ativan that she does take at home. She received Ativan in the ED as well and that helped with her headache. CT scan of the brain was unremarkable. PT CONDITION IS STABLE AND IMPROVING POST ADMISSION SHE IS ABLE TO WALK, TALK, DRINK, ? EAT I WAS ASKED TO PROVIDE HEMEONC CONSULT Constitutional: improved Eyes: no complaints ENT: no complaints Respiratory: no complaints Cardiovascular: no complaints Gastrointestinal: no complaints Genitourinary: ? difficulties eating yesterday Musculoskeletal: no complaints Skin: no complaints Neurologic: no complaints Endocrine: no complaints Lymphatic: no complaints Psychological: nl mood/affect, no complaints Immunologic: no complaints Initial Consultation Hx Past Medical History Medical History: other (Porphyria) Social History Alcohol Use: none Smoking Status: Never smoker Drug Use: none Constitutional: improved Eyes: no complaints ENT: no complaints Respiratory: no complaints Cardiovascular: no complaints Gastrointestinal: no complaints Genitourinary: no complaints Musculoskeletal: no complaints Skin: no complaints Neurologic: no complaints Endocrine: no complaints Lymphatic: no complaints Psychological: nl mood/affect, no complaints Immunologic: no complaints Past Medical History Medical History: other (Porphyria) Social History Alcohol Use: none Smoking Status: Never smoker Drug Use: none Exam/Review of Systems Vital Signs Vitals Vital Signs Date Time Temp Pulse Resp B/P Pulse Ox O2 Delivery O2 Flow Rate FiO2 01/18/17 14:54 97.6 81 16 111/70 96 01/18/17 09:15 Room Air Exam Exam Constitutional: alert, oriented, well developed Psych: nl mood/affect, no complaints Head: atraumatic, normocephalic Eyes: EOMI, nl conjunctiva, nl lids ENMT: nl external ears & nose, nl lips & teeth, nl nasal mucosa & septum Neck: non-tender, supple Respiratory: clear to auscultation, normal air movement Cardiovascular: nl pulses, regular rate and rhythm Gastrointestinal: nl liver, spleen, non-tender, soft Extremities: normal pulses Neurological: CLOUD SECURITY ARCHITECT II-XII intact, nl mental status, nl speech, nl strength Skin: nl turgor, rash or lesions Lymph: nl lymph nodes Medications Medications Current Medications Ondansetron HCl (Zofran Inj) 4 mg Q6H PRN IV NAUSEA AND/OR VOMITING; Start at 04:00 Acetaminophen (Tylenol Tab) 650 mg Q6H PRN PO PAIN LEVEL 1-3 OR FEVER; Start at 04:00 Acetaminophen/ Hydrocodone Bitart (Bruner (5/325)) 1 tab Q6H PRN PO MODERATE PAIN LEVEL 4-6; Start 01/18/17 at 04:00 Docusate Sodium (Colace) 100 mg Q12H PRN PO CONSTIPATION; Start 01/18/17 at 04: 00 Bisacodyl (Dulcolax) 5 mg DAILY PRN PO CONSTIPATION; Start 01/18/17 at 04:00 Famotidine (Pepcid) 20 mg Q12 PO ; Start 01/18/17 at 09:00 Nortriptyline HCl (Aventyl) 10 mg HS PO ; Start 01/18/17 at 21:00 PEPE LANGE MD Jan 18, 2017 18:23 develop symptoms of AIP, the cause is likely to be recognized sooner because they are already known to have AIP rather than simply a family history of the disease. Thus, it is important to identify individuals in a family with the mutation, if possible, and certified genetic counselor them to avoid exacerbating factors and inform their clinicians if symptoms develop. (See "Pathogenesis, clinical manifestations, and diagnosis of acute intermittent porphyria", section on ' Pathogenesis' and "Pathogenesis, clinical manifestations, and diagnosis of acute intermittent porphyria", section on 'Exacerbating factors' and ' Prevention of attacks' above.) When the familial mutation responsible for AIP has been identified in an index patient, family members should undergo DNA testing to identify asymptomatic gene carriers who are at risk of developing AIP. Detection of gene carriers can also reduce delays in diagnosis if symptoms develop in the future. Most individuals with AIP do not consider it a barrier to having children, because is usually well-tolerated; most gene carriers never develop symptoms; and treatment is available and usually effective if symptoms do occur. Additional details regarding identification of PBGD/HMBS mutations in asymptomatic family members, and ethical concerns regarding genetic testing of children, are discussed separately. (See "Pathogenesis, clinical manifestations , and diagnosis of acute intermittent porphyria", section on 'Asymptomatic patients' and "Genetic testing".) PROGNOSIS Data are scarce regarding the prognosis of individuals with AIP due to the rarity of the condition. In addition, individuals with the mildest clinical phenotypes may never be diagnosed with AIP, leading to an inaccurate overestimation of mortality. Longitudinal natural history studies to better define prognosis are now underway in the [place] by the Porphyrias [employer] and by the Porphyria Network (EPNET). Mortality is increased in patients with severe clinical manifestations. This was demonstrated in a retrospective review of 136 patients with AIP severe enough to require hospitalization, which found a standardized mortality ratio of 3.2 (95% CI 2.4-4.0) [17]. During almost 50 years of observation, approximately one-third of the patients . Common causes of included complications of the initial or a subsequent acute attack (eg, complications of respiratory paralysis), which accounted for 20 and 38 percent of deaths, respectively. Suicide was also common (five patients). The standardized mortality ratio remained high after exclusion of the 10 patients who during the initial acute attack (2.6, 95% CI 1.8-3.4). This study spanned the introduction of hemin therapy, after which survival was better than before hemin but still less than the general population. Age at diagnosis and sex were not predictive of mortality, nor were levels of porphyrin precursor excretion. However, patients can have a good prognosis, especially if their disease remains latent or when the diagnosis is made in a timely fashion, acute attacks are managed rapidly, and future attacks prevented. SUMMARY AND RECOMMENDATIONS ?Treatment of an acute attack of acute intermittent porphyria (AIP) requires confirmation that the patient has acute porphyria, based on the finding of elevated urinary porphobilinogen (PBG), but it does not require diagnosis of the specific type of porphyria (algorithm 1). Distinction between AIP, hereditary coproporphyria (HCP), variegate porphyria (REAL ESTATE ECONOMIST), and delta- aminolevulinic acid dehydratase porphyria (ADP) can continue simultaneously with treatment, using samples collected before treatment is begun. In a patient known to have an acute porphyria based on prior testing, the presence of an acute attack is largely established clinically. (See 'Testing before therapy' above.) ?The goal of therapy for an acute attack of AIP (or other acute porphyria) is to sil the attack as rapidly as possible, and to provide appropriate supportive and symptomatic care until the acute attack resolves. Hospitalization is usually required. (See 'Therapy for an acute attack' above.) For patients with AIP (or other acute porphyria) attacks that are severe enough to require hospitalization, opioid analgesia, or other intravenous medication, or are accompanied by nausea and vomiting, motor neuropathy, paresis , seizures, agitation, delirium, psychosis, ileus that prevents oral intake, or hyponatremia, we recommend intravenous administration of hemin rather than carbohydrate loading (Grade 1C). This recommendation is based on the high risk of life-threatening sequelae from a severe acute porphyria attack and the apparent efficacy and safety of hemin based on observational data; however, prospective randomized clinical trials are lacking. Hemin should be administered without delay once the presence of an acute attack of porphyria is established. A typical regimen is Panhematin, 3 to 4 mg/kg reconstituted with 25 percent human albumin and administered intravenously as a single daily dose for four days. (See 'Intravenous hemin' above.) Carbohydrate loading should be used as a temporizing measure while awaiting the availability of intravenous hemin. We also suggest treatment with hemin rather than carbohydrate loading for patients with AIP attacks characterized with mild pain not requiring opioid analgesics and without severe manifestations such as seizures, paralysis, or hyponatremia (Grade 2C). However, an initial trial of carbohydrate loading is sometimes effective. Typical regimens include oral glucose polymer solution, up to 300 grams daily; or 10 percent intravenous glucose, 300 to 400 grams per 24 hours. Paresis is potentially life-threatening, may lead to quadriparesis and respiratory paralysis, and must be addressed immediately (eg, with mechanical ventilation as needed). Bedside spirometry should be available to detect early respiratory impairment, and hemin should be continued until neurologic function recovers. (See 'Paresis and paralysis' above.) Seizures may be due to hyponatremia or porphyria itself, and are difficult to treat because most anticonvulsants can exacerbate acute porphyrias. Seizures may be treated with anticonvulsant drugs if rapid spontaneous resolution does not occur. Almost all anticonvulsant drugs have at least some potential for exacerbating acute porphyrias. Gabapentin and levetiracetam are safe, and clonazepam may be less harmful than phenytoin, barbiturates, or valproic acid. ( See 'Seizures' above.) Other AIP symptoms can also be severe. Pain is the most prominent symptoms and almost always requires opioid analgesics. Nausea and vomiting, agitation, hallucinations, anxiety, insomnia, tachycardia, and hypertension also require therapy. (See 'Treatment of other symptoms' above.) ?Subacute and chronic symptoms sometimes develop after repeated attacks and can be managed with symptomatic therapy and prevention of further acute attacks. A banner painter if often helpful for achieving adequate control of chronic pain. (See 'Therapy for subacute or chronic symptoms' above.) ?Some patients with AIP have identifiable triggers for attacks; these should be avoided and/or minimized as much as possible. Patients should avoid smoking, alcohol, and harmful medications (table 1). Lists of safe and unsafe drugs are available on websites of the [employer] Porphyria [employer] ( www.porphyriafoundation.com) and the Porphyria Network (EPNET: www.porphyria-europe.com). Additional strategies for preventing attacks include maintenance of a well- balanced diet somewhat high in carbohydrates; correction of iron deficiency as detected by monitoring serum ferritin; suppression of menstrual cycles for patients with luteal-phase symptoms; and prompt treatment of any intercurrent infections or other illnesses. (See 'Prevention of attacks' above.) ?Patients with AIP are at risk for developing chronic renal failure, hepatocellular carcinoma, and iron deficiency from menstrual blood loss (as in women without AIP) or iron overload from frequent hemin therapy. Hypertension should be controlled and nephrotoxic drugs avoided; patients over age 50 should have hepatic imaging for early detection of hepatocellular carcinoma; and serum ferritin levels should be monitored. It is reasonable to measure liver function tests, since transaminases are often persistently abnormal in patients with AIP and frequent symptoms. Reasonable indications for liver transplantation include frequent hospitalizations, unresponsiveness to hemin, and a poor quality of life. (See 'Monitoring for complications of disease and therapy' above and ' Liver transplantation' above.) ?When the familial mutation responsible for AIP has been identified in an index patient, family members should undergo DNA testing to identify asymptomatic gene carriers who are at risk of developing AIP. Detection of gene carriers can also reduce delays in diagnosis if symptoms develop in the future. Most individuals with AIP do not consider it a barrier to having children. (See ' Genetic counseling' above.) ?Data are scare regarding the prognosis of individuals with AIP due to the rarity and low penetrance of the condition. Mortality is increased in patients with severe clinical manifestations; however, patients can have a good prognosis , especially when their disease remains latent or the diagnosis is made in a timely fashion and acute attacks are managed rapidly and prevented thereafter. ( See 'Prognosis' above.) Referring Provider: JAMIR FARIA MD Hx of Present Illness The patient is a 21-year-old female, with clinical dx of PORPHYRIA, suspected one yr ago, when she was acutely sick with labile BP and tachycardia. She is being followed by hemaatologist at [facility] - DR DAVE. PER PT AND HER MOTHER - SO FAR ALL DX TESTS WERE NEG FOR PORPHYRIA SOME GENETIC TESTING WHICH WAS DONE LAST MO IN [place] IS ABN, RESULT IS NOT AVAILABLE= PER VERBAL REPORT SHE NEVER HAS BEEN TREATED FOR THIS CONDITION PT presented with intermittent headache for 1 week. The headache is diffuse on the top of her head, she had similar symptoms previously. She complained of having had a slurred speech and masked facies at around 1:30 PM on 01/17 for 1-2 minutes and resolved by itself while she was on her way to see her account general manager for treatment of her porphyria. She was brought into emergency room by her mother and extensive workup that was unremarkable including spinal tap. She eloped from the ER after the spinal tap. She came back to the ER because of worsening headache after the spinal tap. She denies fever, chills, blurry vision, neck pain, chest pain, abdominal pain, vomiting, dysuria. Of note is that her symptoms usually resolve with Ativan that she does take at home. She received Ativan in the ED as well and that helped with her headache. CT scan of the brain was unremarkable. PT CONDITION IS STABLE AND IMPROVING POST ADMISSION SHE IS ABLE TO WALK, TALK, DRINK, ? EAT I WAS ASKED TO PROVIDE HEMEONC CONSULT Constitutional: improved Eyes: no complaints ENT: no complaints Respiratory: no complaints Cardiovascular: no complaints Gastrointestinal: no complaints Genitourinary: ? difficulties eating yesterday Musculoskeletal: no complaints Skin: no complaints Neurologic: no complaints Endocrine: no complaints Lymphatic: no complaints Psychological: nl mood/affect, no complaints Immunologic: no complaints Initial Consultation Hx Past Medical History Medical History: other (Porphyria) Social History Alcohol Use: none Smoking Status: Never smoker Drug Use: none Constitutional: improved Eyes: no complaints ENT: no complaints Respiratory: no complaints Cardiovascular: no complaints Gastrointestinal: no complaints Genitourinary: no complaints Musculoskeletal: no complaints Skin: no complaints Neurologic: no complaints Endocrine: no complaints Lymphatic: no complaints Psychological: nl mood/affect, no complaints Immunologic: no complaints Past Medical History Medical History: other (Porphyria) Social History Alcohol Use: none Smoking Status: Never smoker Drug Use: none Exam/Review of Systems Vital Signs Vitals Vital Signs Date Time Temp Pulse Resp B/P Pulse Ox O2 Delivery O2 Flow Rate FiO2 01/18/17 14:54 97.6 81 16 111/70 96 01/18/17 09:15 Room Air Exam Exam Constitutional: alert, oriented, well developed Psych: nl mood/affect, no complaints Head: atraumatic, normocephalic Eyes: EOMI, nl conjunctiva, nl lids ENMT: nl external ears & nose, nl lips & teeth, nl nasal mucosa & septum Neck: non-tender, supple Respiratory: clear to auscultation, normal air movement Cardiovascular: nl pulses, regular rate and rhythm Gastrointestinal: nl liver, spleen, non-tender, soft Extremities: normal pulses Neurological: CLOUD SECURITY ARCHITECT II-XII intact, nl mental status, nl speech, nl strength Skin: nl turgor, rash or lesions Lymph: nl lymph nodes Medications Medications Current Medications Ondansetron HCl (Zofran Inj) 4 mg Q6H PRN IV NAUSEA AND/OR VOMITING; Start at 04:00 Acetaminophen (Tylenol Tab) 650 mg Q6H PRN PO PAIN LEVEL 1-3 OR FEVER; Start at 04:00 Acetaminophen/ Hydrocodone Bitart (Bruner (5/325)) 1 tab Q6H PRN PO MODERATE PAIN LEVEL 4-6; Start 01/18/17 at 04:00 Docusate Sodium (Colace) 100 mg Q12H PRN PO CONSTIPATION; Start 01/18/17 at 04: 00 Bisacodyl (Dulcolax) 5 mg DAILY PRN PO CONSTIPATION; Start 01/18/17 at 04:00 Famotidine (Pepcid) 20 mg Q12 PO ; Start 01/18/17 at 09:00 Nortriptyline HCl (Aventyl) 10 mg HS PO ; Start 01/18/17 at 21:00 PEPE LANGE MD Jan 18, 2017 18:23 clonazepam may be less harmful than phenytoin, barbiturates, or valproic acid. ( See 'Seizures' above.) Other AIP symptoms can also be severe. Pain is the most prominent symptoms and almost always requires opioid analgesics. Nausea and vomiting, agitation, hallucinations, anxiety, insomnia, tachycardia, and hypertension also require therapy. (See 'Treatment of other symptoms' above.) ?Subacute and chronic symptoms sometimes develop after repeated attacks and can be managed with symptomatic therapy and prevention of further acute attacks. A banner painter if often helpful for achieving adequate control of chronic pain. (See 'Therapy for subacute or chronic symptoms' above.) ?Some patients with AIP have identifiable triggers for attacks; these should be avoided and/or minimized as much as possible. Patients should avoid smoking, alcohol, and harmful medications (table 1). Lists of safe and unsafe drugs are available on websites of the [employer] Porphy[employer] ( www.porphyriafoundation.com) and the Porphyria Network (EPNET: www.porphyria-europe.com). Additional strategies for preventing attacks include maintenance of a well- balanced diet somewhat high in carbohydrates; correction of iron deficiency as detected by monitoring serum ferritin; suppression of menstrual cycles for patients with luteal-phase symptoms; and prompt treatment of any intercurrent infections or other illnesses. (See 'Prevention of attacks' above.) ?Patients with AIP are at risk for developing chronic renal failure, hepatocellular carcinoma, and iron deficiency from menstrual blood loss (as in women without AIP) or iron overload from frequent hemin therapy. Hypertension should be controlled and nephrotoxic drugs avoided; patients over age 50 should have hepatic imaging for early detection of hepatocellular carcinoma; and serum ferritin levels should be monitored. It is reasonable to measure liver function tests, since transaminases are often persistently abnormal in patients with AIP and frequent symptoms. Reasonable indications for liver transplantation include frequent hospitalizations, unresponsiveness to hemin, and a poor quality of life. (See 'Monitoring for complications of disease and therapy' above and ' Liver transplantation' above.) ?When the familial mutation responsible for AIP has been identified in an index patient, family members should undergo DNA testing to identify asymptomatic gene carriers who are at risk of developing AIP. Detection of gene carriers can also reduce delays in diagnosis if symptoms develop in the future. Most individuals with AIP do not consider it a barrier to having children. (See ' Genetic counseling' above.) ?Data are scare regarding the prognosis of individuals with AIP due to the rarity and low penetrance of the condition. Mortality is increased in patients with severe clinical manifestations; however, patients can have a good prognosis , especially when their disease remains latent or the diagnosis is made in a timely fashion and acute attacks are managed rapidly and prevented thereafter. ( See 'Prognosis' above.) 3. Dysphagia - Will order swallow eval for further assessment 4. Leukocytosis - Most likely reactive. will follow Problems: Consultation Date/Type/Reason Admit Date/Time Jan 18, 2017 at 03:07 Date of Consultation: Jan 18, 2017 Type of Consultation: hemeon Reason for Consultation PREVENTION OF ATTACKS Some patients with AIP have predictable triggers for attacks; these should be avoided or minimized as much as possible. Additional patients may have an AIP mutation but have not experienced an attack (ie, have latent AIP); this also applies to children with an identified familial mutation , who might become susceptible to attacks as they reach puberty. These individuals should also be counseled regarding potential triggers and means to avoid them. Multiple inciting factors must be addressed: ?Avoidance of harmful medications Authoritative websites with recommendations based on existing evidence should be consulted to avoid exposure to harmful drugs in treating intercurrent illnesses or symptoms (table 1) [26,27]. (See ' Treatment of other symptoms' above and "Pathogenesis, clinical manifestations, and diagnosis of acute intermittent porphyria", section on 'Medications' and "Pathogenesis, clinical manifestations, and diagnosis of acute intermittent porphyria", section on 'Exacerbating factors'.) ?Avoidance of smoking and alcohol We certified genetic counselor patients to avoid or discontinue smoking, including use of marijuana, and to avoid alcohol intake. Smoking and alcohol intake both can exacerbate AIP (or other acute porphyrias) via induction of hepatic P450 enzymes (CYPs), which in turn can deplete the pool of hepatic heme; they can also directly induce ALAS1, leading to increased synthesis of toxic heme precursors. (See "Pathogenesis, clinical manifestations , and diagnosis of acute intermittent porphyria" and "Porphyrias: An overview" and "Overview of smoking cessation management in adults".) ?Rapid treatment of infections and other illnesses Infection or other illnesses can cause metabolic stress that may exacerbate AIP. Prompt treatment of any intercurrent infections or other illnesses, including safe antibiotics, adequate hydration, and correction of any associated metabolic abnormalities, is essential. ?Prevention of infections We ensure that all appropriate vaccinations are administered to prevent infections that might trigger an attack. Specific recommendations are presented in detail separately. (See "Approach to immunizations in healthy adults".) ?Dietary issues Consultation with a dietitian may identify dietary factors responsible for precipitating attacks and help maintain a well-balanced diet somewhat high in carbohydrates (eg, as 60 to 70 percent of total calories). Additional dietary carbohydrates and/or calories are unlikely to be helpful and may lead to excessive weight gain. If used, weight loss diets should provide gradual weight loss and should be used during periods of clinical stability. Precipitation of acute porphyria symptoms after weight loss surgery has been reported; although it has been applied safely in some patients, we prefer to avoid this method of weight loss [28]. (See "Dietary assessment in adults".) ?Anemia Anemia is not a feature of AIP; however, iron deficiency is common, especially in women during their reproductive years, and should be corrected because of the theoretical concern that iron deficiency might further impair heme synthesis. It may be advantageous to monitor serum ferritin and assure adequacy of iron stores as indicated by a level above approximately 20 ng/mL. ( See "Causes and diagnosis of iron deficiency and iron deficiency anemia in adults" and "Treatment of iron deficiency anemia in adults".) ?Hormonal changes Frequently recurring attacks confined to the luteal phase of the menstrual cycle can be prevented with a GnRH analogue to suppress ovulation [29-31]. If treatment is effective after several months, additional therapies should be included to prevent bone loss. Options include low-dose estradiol, preferably by the transdermal route, a bisphosphonate, or switching to a low-dose estrogen-progestin contraceptive. (See "Hormonal contraception for suppression of menstruation" and "Endometriosis: Long-term treatment with gonadotropin-releasing hormone agonists", section on 'GnRH with add-back therapy ' and "Prevention of osteoporosis".) In addition to the above dietary and lifestyle modifications, there are some patients for whom prophylactic hemin is effective for preventing frequent, non- cyclic attacks of porphyrias [32]. Hemin can be administered once or twice weekly in this setting. The decision to initiate prophylactic hemin is based on clinical experience and made on a [id number] basis depending on disease severity. For example, prophylactic hemin might be appropriate in a patient who has at least monthly severe non-cyclic attacks despite the preventive measures outlined above. (See 'Intravenous hemin' above.) MONITORING FOR COMPLICATIONS OF DISEASE AND THERAPY Patients with AIP are at risk for developing chronic renal failure and hepatocellular carcinoma; and iron stores may be decreased from menstrual blood loss (as in women without AIP ) or increased from frequent hemin therapy. Along with standard medical care, we recommend screening for the following: ?Hypertension We monitor blood pressure and screen for hypertension according to standard practices. If present, hypertension should be controlled, nephrotoxic drugs avoided, and renal function monitored (serum creatinine and BUN, and urinalysis). (See "Overview of hypertension in adults".) ?Hepatocellular carcinoma Patients over age 50 with acute porphyrias, and especially those with continued elevations of ALA and PBG, should be screened by hepatic imaging at least annually for early detection of hepatocellular carcinoma, due to the increased incidence especially after age 50, and a prospective study of 62 patients that found screening increased survival [2,33, 34]. (See "Prevention of hepatocellular carcinoma and recommendations for surveillance in adults with chronic liver disease".) Most patients who have developed hepatocellular carcinoma are described as not having cirrhosis. In addition, some patients with AIP are observed to have cirrhosis without hepatocellular carcinoma. Longitudinal information about the liver is very limited in the acute porphyrias, but because patients with AIP often have persistent transaminase elevations, we monitor liver function tests as well as imaging. ?Decreased or increased iron stores Monitoring of serum ferritin is useful to assure adequacy of iron stores as indicated by a level above approximately 20 ng /mL, and for early detection of iron overload in patients treated repeatedly with hemin (eg, at baseline and every 6 to 12 months or after 10 to 15 doses). Phlebotomy may be necessary if ferritin levels increase significantly with repeated hemin administration; some patients tolerate removal of 450 mL of blood every two to four weeks, as done for other iron overload disorders. Alternatively, small-volume phlebotomy to reduce serum ferritin levels to within the normal range have been used in patients with iron overload. As an example, in patients with high ferritin levels who are benefitting from weekly hemin infusions, a small-volume phlebotomy may be done before each weekly hemin infusion. Chelation therapy is avoided because iron chelators can reduce iron availably for hepatic heme synthesis in rodents, and this might exacerbate AIP. Most women with AIP tolerate well despite elevations in circulating progesterone. However, some women have more frequent attacks during , and these are treated in the same manner as in the absence of . Experience has shown that hemin is safe and effective during . Interruption of should never be considered as a necessity in the management of AIP [35]. LIVER TRANSPLANTATION Transplantation of a normal liver in patients disabled by recurrent attacks of AIP has been highly effective in most cases without advanced motor neuropathy [36,37]. This may be an option for severely affected patients without quadriparesis. Reasonable indications for liver transplantation include frequent hospitalizations, unresponsiveness to hemin, and poor quality of life. However, it is often difficult to weigh the risks and benefits of liver transplantation because of the unpredictable natural course of the disease, which may progress or improve. These factors also complicate the decision regarding the timing of transplantation. Liver transplantation should be considered before advanced complications, such as extensive paresis, have occurred. GENETIC COUNSELING AIP is an inherited autosomal dominant condition. The underlying genetic defect is mutation of the porphobilinogen deaminase/ hydroxymethylbilane synthase (PBGD/HMBS) gene. Disease penetrance in AIP is low ; most individuals with a PBGD/HMBS mutation are clinically asymptomatic ( referred to as latent disease), but they are at risk for porphyria attacks and may benefit from avoiding factors that could trigger a porphyria attack such as exacerbating medications (table 1), fasting, smoking, or alcohol. If they do develop symptoms of AIP, the cause is likely to be recognized sooner because they are already known to have AIP rather than simply a family history of the disease. Thus, it is important to identify individuals in a family with the mutation, if possible, and certified genetic counselor them to avoid exacerbating factors and inform their clinicians if symptoms develop. (See "Pathogenesis, clinical manifestations, and diagnosis of acute intermittent porphyria", section on ' Pathogenesis' and "Pathogenesis, clinical manifestations, and diagnosis of acute intermittent porphyria", section on 'Exacerbating factors' and ' Prevention of attacks' above.) When the familial mutation responsible for AIP has been identified in an index patient, family members should undergo DNA testing to identify asymptomatic gene carriers who are at risk of developing AIP. Detection of gene carriers can also reduce delays in diagnosis if symptoms develop in the future. Most individuals with AIP do not consider it a barrier to having children, because is usually well-tolerated; most gene carriers never develop symptoms; and treatment is available and usually effective if symptoms do occur. Additional details regarding identification of PBGD/HMBS mutations in asymptomatic family members, and ethical concerns regarding genetic testing of children, are discussed separately. (See "Pathogenesis, clinical manifestations , and diagnosis of acute intermittent porphyria", section on 'Asymptomatic patients' and "Genetic testing".) PROGNOSIS Data are scarce regarding the prognosis of individuals with AIP due to the rarity of the condition. In addition, individuals with the mildest clinical phenotypes may never be diagnosed with AIP, leading to an inaccurate overestimation of mortality. Longitudinal natural history studies to better define prognosis are now underway in the [place] by the Porphyrias Consortium and by the Porphyria Network (EPNET). Mortality is increased in patients with severe clinical manifestations. This was demonstrated in a retrospective review of 136 patients with AIP severe enough to require hospitalization, which found a standardized mortality ratio of 3.2 (95% CI 2.4-4.0) [17]. During almost 50 years of observation, approximately one-third of the patients . Common causes of included complications of the initial or a subsequent acute attack (eg, complications of respiratory paralysis), which accounted for 20 and 38 percent of deaths, respectively. Suicide was also common (five patients). The standardized mortality ratio remained high after exclusion of the 10 patients who during the initial acute attack (2.6, 95% CI 1.8-3.4). This study spanned the introduction of hemin therapy, after which survival was better than before hemin but still less than the general population. Age at diagnosis and sex were not predictive of mortality, nor were levels of porphyrin precursor excretion. However, patients can have a good prognosis, especially if their disease remains latent or when the diagnosis is made in a timely fashion, acute attacks are managed rapidly, and future attacks prevented. SUMMARY AND RECOMMENDATIONS ?Treatment of an acute attack of acute intermittent porphyria (AIP) requires confirmation that the patient has acute porphyria, based on the finding of elevated urinary porphobilinogen (PBG), but it does not require diagnosis of the specific type of porphyria (algorithm 1). Distinction between AIP, hereditary coproporphyria (HCP), variegate porphyria (REAL ESTATE ECONOMIST), and delta- aminolevulinic acid dehydratase porphyria (ADP) can continue simultaneously with treatment, using samples collected before treatment is begun. In a patient known to have an acute porphyria based on prior testing, the presence of an acute attack is largely established clinically. (See 'Testing before therapy' above.) ?The goal of therapy for an acute attack of AIP (or other acute porphyria) is to sil the attack as rapidly as possible, and to provide appropriate supportive and symptomatic care until the acute attack resolves. Hospitalization is usually required. (See 'Therapy for an acute attack' above.) For patients with AIP (or other acute porphyria) attacks that are severe enough to require hospitalization, opioid analgesia, or other intravenous medication, or are accompanied by nausea and vomiting, motor neuropathy, paresis , seizures, agitation, delirium, psychosis, ileus that prevents oral intake, or hyponatremia, we recommend intravenous administration of hemin rather than carbohydrate loading (Grade 1C). This recommendation is based on the high risk of life-threatening sequelae from a severe acute porphyria attack and the apparent efficacy and safety of hemin based on observational data; however, prospective randomized clinical trials are lacking. Hemin should be administered without delay once the presence of an acute attack of porphyria is established. A typical regimen is Panhematin, 3 to 4 mg/kg reconstituted with 25 percent human albumin and administered intravenously as a single daily dose for four days. (See 'Intravenous hemin' above.) Carbohydrate loading should be used as a temporizing measure while awaiting the availability of intravenous hemin. We also suggest treatment with hemin rather than carbohydrate loading for patients with AIP attacks characterized with mild pain not requiring opioid analgesics and without severe manifestations such as seizures, paralysis, or hyponatremia (Grade 2C). However, an initial trial of carbohydrate loading is sometimes effective. Typical regimens include oral glucose polymer solution, up to 300 grams daily; or 10 percent intravenous glucose, 300 to 400 grams per 24 hours. Paresis is potentially life-threatening, may lead to quadriparesis and respiratory paralysis, and must be addressed immediately (eg, with mechanical ventilation as needed). Bedside spirometry should be available to detect early respiratory impairment, and hemin should be continued until neurologic function recovers. (See 'Paresis and paralysis' above.) Seizures may be due to hyponatremia or porphyria itself, and are difficult to treat because most anticonvulsants can exacerbate acute porphyrias. Seizures may be treated with anticonvulsant drugs if rapid spontaneous resolution does not occur. Almost all anticonvulsant drugs have at least some potential for exacerbating acute porphyrias. Gabapentin and levetiracetam are safe, and clonazepam may be less harmful than phenytoin, barbiturates, or valproic acid. ( See 'Seizures' above.) Other AIP symptoms can also be severe. Pain is the most prominent symptoms and almost always requires opioid analgesics. Nausea and vomiting, agitation, hallucinations, anxiety, insomnia, tachycardia, and hypertension also require therapy. (See 'Treatment of other symptoms' above.) ?Subacute and chronic symptoms sometimes develop after repeated attacks and can be managed with symptomatic therapy and prevention of further acute attacks. A banner painter if often helpful for achieving adequate control of chronic pain. (See 'Therapy for subacute or chronic symptoms' above.) ?Some patients with AIP have identifiable triggers for attacks; these should be avoided and/or minimized as much as possible. Patients should avoid smoking, alcohol, and harmful medications (table 1). Lists of safe and unsafe drugs are available on websites of the [employer] Porphyria [employer] ( www.porphyriafoundation.com) and the Porphyria Network (EPNET: www.porphyria-europe.com). Additional strategies for preventing attacks include maintenance of a well- balanced diet somewhat high in carbohydrates; correction of iron deficiency as detected by monitoring serum ferritin; suppression of menstrual cycles for patients with luteal-phase symptoms; and prompt treatment of any intercurrent infections or other illnesses. (See 'Prevention of attacks' above.) ?Patients with AIP are at risk for developing chronic renal failure, hepatocellular carcinoma, and iron deficiency from menstrual blood loss (as in women without AIP) or iron overload from frequent hemin therapy. Hypertension should be controlled and nephrotoxic drugs avoided; patients over age 50 should have hepatic imaging for early detection of hepatocellular carcinoma; and serum ferritin levels should be monitored. It is reasonable to measure liver function tests, since transaminases are often persistently abnormal in patients with AIP and frequent symptoms. Reasonable indications for liver transplantation include frequent hospitalizations, unresponsiveness to hemin, and a poor quality of life. (See 'Monitoring for complications of disease and therapy' above and ' Liver transplantation' above.) ?When the familial mutation responsible for AIP has been identified in an index patient, family members should undergo DNA testing to identify asymptomatic gene carriers who are at risk of developing AIP. Detection of gene carriers can also reduce delays in diagnosis if symptoms develop in the future. Most individuals with AIP do not consider it a barrier to having children. (See ' Genetic counseling' above.) ?Data are scare regarding the prognosis of individuals with AIP due to the rarity and low penetrance of the condition. Mortality is increased in patients with severe clinical manifestations; however, patients can have a good prognosis , especially when their disease remains latent or the diagnosis is made in a timely fashion and acute attacks are managed rapidly and prevented thereafter. ( See 'Prognosis' above.) Referring Provider: JAMIR FARIA MD Hx of Present Illness The patient is a 21-year-old female, with clinical dx of PORPHYRIA, suspected one yr ago, when she was acutely sick with labile BP and tachycardia. She is being followed by hemaatologist at [facility] - DR DAVE. PER PT AND HER MOTHER - SO FAR ALL DX TESTS WERE NEG FOR PORPHYRIA SOME GENETIC TESTING WHICH WAS DONE LAST MO IN [place] IS ABN, RESULT IS NOT AVAILABLE= PER VERBAL REPORT SHE NEVER HAS BEEN TREATED FOR THIS CONDITION PT presented with intermittent headache for 1 week. The headache is diffuse on the top of her head, she had similar symptoms previously. She complained of having had a slurred speech and masked facies at around 1:30 PM on 01/17 for 1-2 minutes and resolved by itself while she was on her way to see her account general manager for treatment of her porphyria. She was brought into emergency room by her mother and extensive workup that was unremarkable including spinal tap. She eloped from the ER after the spinal tap. She came back to the ER because of worsening headache after the spinal tap. She denies fever, chills, blurry vision, neck pain, chest pain, abdominal pain, vomiting, dysuria. Of note is that her symptoms usually resolve with Ativan that she does take at home. She received Ativan in the ED as well and that helped with her headache. CT scan of the brain was unremarkable. PT CONDITION IS STABLE AND IMPROVING POST ADMISSION SHE IS ABLE TO WALK, TALK, DRINK, ? EAT I WAS ASKED TO PROVIDE HEMEONC CONSULT Constitutional: improved Eyes: no complaints ENT: no complaints Respiratory: no complaints Cardiovascular: no complaints Gastrointestinal: no complaints Genitourinary: ? difficulties eating yesterday Musculoskeletal: no complaints Skin: no complaints Neurologic: no complaints Endocrine: no complaints Lymphatic: no complaints Psychological: nl mood/affect, no complaints Immunologic: no complaints Initial Consultation Hx Past Medical History Medical History: other (Porphyria) Social History Alcohol Use: none Smoking Status: Never smoker Drug Use: none Constitutional: improved Eyes: no complaints ENT: no complaints Respiratory: no complaints Cardiovascular: no complaints Gastrointestinal: no complaints Genitourinary: no complaints Musculoskeletal: no complaints Skin: no complaints Neurologic: no complaints Endocrine: no complaints Lymphatic: no complaints Psychological: nl mood/affect, no complaints Immunologic: no complaints Past Medical History Medical History: other (Porphyria) Social History Alcohol Use: none Smoking Status: Never smoker Drug Use: none Exam/Review of Systems Vital Signs Vitals Vital Signs Date Time Temp Pulse Resp B/P Pulse Ox O2 Delivery O2 Flow Rate FiO2 01/18/17 14:54 97.6 81 16 111/70 96 01/18/17 09:15 Room Air Exam Exam Constitutional: alert, oriented, well developed Psych: nl mood/affect, no complaints Head: atraumatic, normocephalic Eyes: EOMI, nl conjunctiva, nl lids ENMT: nl external ears & nose, nl lips & teeth, nl nasal mucosa & septum Neck: non-tender, supple Respiratory: clear to auscultation, normal air movement Cardiovascular: nl pulses, regular rate and rhythm Gastrointestinal: nl liver, spleen, non-tender, soft Extremities: normal pulses Neurological: CLOUD SECURITY ARCHITECT II-XII intact, nl mental status, nl speech, nl strength Skin: nl turgor, rash or lesions Lymph: nl lymph nodes Medications Medications Current Medications Ondansetron HCl (Zofran Inj) 4 mg Q6H PRN IV NAUSEA AND/OR VOMITING; Start at 04:00 Acetaminophen (Tylenol Tab) 650 mg Q6H PRN PO PAIN LEVEL 1-3 OR FEVER; Start at 04:00 Acetaminophen/ Hydrocodone Bitart (Bruner (5/325)) 1 tab Q6H PRN PO MODERATE PAIN LEVEL 4-6; Start 01/18/17 at 04:00 Docusate Sodium (Colace) 100 mg Q12H PRN PO CONSTIPATION; Start 01/18/17 at 04: 00 Bisacodyl (Dulcolax) 5 mg DAILY PRN PO CONSTIPATION; Start 01/18/17 at 04:00 Famotidine (Pepcid) 20 mg Q12 PO ; Start 01/18/17 at 09:00 Nortriptyline HCl (Aventyl) 10 mg HS PO ; Start 01/18/17 at 21:00 PEPE LANGE MD Jan 18, 2017 18:23
[2017-01-18 20:07] VITALS: BP 121/79; RESP 17
[2017-01-18] MEDS ORDERED: NORTRIPTYLINE 10 MG CAP PO SCH (21:00)
--- NOTE | 2017-01-18 22:55 | EN ---
Date/Time of Note Date/Time of Note DATE: 01/18/17 TIME: 22:51 Event Note Medicine Medicine Event Note Called by nurse as patient was complaining of lower back pain and unable to ambulate. Patient seen and examined at the bedside. Patient reports she started experiencing sudden onset lower back pain at the site of her lumbar puncture last night. She states she is unable to walk. Denies any numbness in the perineum. Her sensation is intact. She is able to move her lower extremities without difficulty. She states when she extends her back she feels the pain or when she lays on her back. She is slightly anxious. Vitals: Stable HEENT: Normal cephalic atraumatic Lungs: Clear to solution bilaterally CVS: Normal sinus rhythm, No murmurs Musculoskeletal: Tenderness to palpation at the lumbar spine at the site of the lumbar puncture, no visible swelling or or bruising noted. Extremities: Free range of motion 4, Genitourinary: Deferred, but no urinary incontinence. Neurological: Sensation intact Neurological: Cranial nerves II through XII intact, alert and oriented 3, sensation and motor function intact bilateral lower extremities Patient was refusing any pain medications. She did not want to undergo any imaging if necessary. At that time patient was given Ativan 0.5 mg. She was continued to be monitored. Approximately 30 minutes later the nurse called me to report that the patient's pain had gone away and that she was able to walk without any problems. Assessment and plan: #1 ambulatory dysfunction: Resolved: Likely anxiety related. There was initial concern for cauda equina syndrome however no saddle anesthesia, normal sensation and motor function. After patient was given Ativan she had resolution of her symptoms. I feel that patient's symptoms are most likely related to anxiety as her symptoms seem to resolve after she is given Ativan. I feel like patient may benefit from a telemetry psych consult. Will continue monitor patient's back pain. Greater than 35 minutes of critical care time was spent on the care and management of this patient. PRATIK VIZCAINO Jan 18, 2017 22:55
[2017-01-19 02:01] VITALS: BP 120/69; RESP 18
[2017-01-19] MEDS: LORAZEPAM 0.5 MG TAB PO PRN (02:31)
[2017-01-19] MEDS: FAMOTIDINE 20 MG TAB PO SCH (08:11)
[2017-01-19 08:17] VITALS: BP 109/75; RESP 18
--- NOTE | 2017-01-19 12:11 | PDOCDIS ---
Discharge Instructions DIAGNOSIS Discharge Diagnosis 1. Intractable headache 2. Acute exacerbation of Hereditary Porphyria 3. Dysphagia CONDITION Patient Condition: Good HOME CARE INSTRUCTIONS: Diet Instructions: RegularSpecial Diet: Regular Diet ACTIVITY: Activity Restrictions: No Restrictions FOLLOW UP/APPOINTMENTS Follow-up Plan 1. Take medications as needed 2. Follow up with your primary care physician in 1 week 3. Follow up with your pouch making machine operator in 1 week 4. If symptoms worsen, please return to ED REFERRALS Other Referrals Deanna Faustin MD Specialty: Oncology, Hematology Office Address [address] [place] [address] Office JAMIR FARIA MD Jan 19, 2017 12:11
--- NOTE | 2017-01-19 12:16 | PN ---
Date/Time of Note Date/Time of Note DATE: 01/19/17 TIME: 12:12 Assessment/Plan VTE Prophylaxis VTE Prophylaxis Intervention: ambulation Lines/Catheters IV Catheter Type (from Nrs): Saline Lock Urinary Cath still in place: No Assessment/Plan Assessment/Plan 1. Intractable headache - Patient states CRUM has improved and usually resolves with Ativan. Most likely anxiety component to patients symptoms - Neurology on board and recommendations appreciated. - MRI performed and showed right maxillary sinus density which patient and mother are already aware of. 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 patients symptoms resolved which does not warrant further investigation. - Advised to follow up with her Customer Service Representative Teacher after discharge 3. Dysphagia - Resolved 4. Leukocytosis - Most likely reactive. will follow - Patient refusing all blood draws at this time but has been afebrile 5. Disposition - patient cleared by Hematology for discharge home. Subjective 24 Hr Interval Summary Free Text/Dictation Patient states still has a residual headache but significantly improved. She states she no longer is experiencing difficulty with swallowing or walking. Exam/Review of Systems Vital Signs Vitals Vital Signs Date Time Temp Pulse Resp B/P Pulse Ox O2 Delivery O2 Flow Rate FiO2 01/19/17 08:17 97.4 87 18 109/75 97 01/18/17 09:15 Room Air Intake and Output 01/18/17 01/18/17 01/19/17 15:00 23:00 07:00 Intake Total 720 ml 480 ml Balance 720 ml 480 ml Exam General: NAD, awake and alert CVS: regular rate and rhythm. no murmurs Lungs: CTA b/l. no wheezes or rhonchi Abdomen: soft NT, ND, no rebound or guarding Ext: moving all extremities. no edema Neuro: CN 2-12 intact. no focal deficits Medications Medications Current Medications Ondansetron HCl (Zofran Inj) 4 mg Q6H PRN IV NAUSEA AND/OR VOMITING; Start at 04:00 Acetaminophen (Tylenol Tab) 650 mg Q6H PRN PO PAIN LEVEL 1-3 OR FEVER; Start at 04:00 Acetaminophen/ Hydrocodone Bitart ([place] (5/325)) 1 tab Q6H PRN PO MODERATE PAIN LEVEL 4-6; Start 01/18/17 at 04:00 Docusate Sodium (Colace) 100 mg Q12H PRN PO CONSTIPATION; Start 01/18/17 at 04: 00 Bisacodyl (Dulcolax) 5 mg DAILY PRN PO CONSTIPATION; Start 01/18/17 at 04:00 Famotidine (Pepcid) 20 mg Q12 PO ; Start 01/18/17 at 09:00 Nortriptyline HCl (Aventyl) 10 mg HS PO ; Start 01/18/17 at 21:00 JAMIR FARIA MD Jan 19, 2017 12:16
--- NOTE | 2017-01-19 12:38 | DS ---
Date/Time of Note Date/Time of Note DATE: 01/19/17 TIME: 12:38 Discharge Summary Admission/Discharge Info Admit Date/Time Jan 18, 2017 at 03:07 Discharge Date/Time Discharge Diagnosis 1. Intractable headache 2. Acute exacerbation of Hereditary Porphyria 3. Dysphagia Patient Condition: Good Consults Neurology, Dr. Mcneal Hematology Oncology, Dr. Faustin Hx of Present Illness History was obtained from the patient as well as the ED physician documentation Chief complaint: Headache The patient is a 21-year-old female, presenting with intermittent headache for 1 week. The headache is diffuse on the top of her head, she had similar symptoms previously. She complained of having had a slurred speech and masked facies at around 1:30 PM on 01/17 for 1-2 minutes and resolved by itself while she was on her way to see her repeater operator for treatment of her porphyria. She was seen by the emergency physician Dr. Aldana to order extensive workup that was unremarkable including spinal tap. She is eloped from the ER after the spinal tap. She came back to the ER because of worsening headache after the spinal tap. She denies fever, chills, blurry vision, neck pain, chest pain, abdominal pain, vomiting, dysuria. She, multiple loose bowel movement today, denies hematochezia. She does not smoke nor drink nor use illicit drug, however has increased stress in her life. Of note patient states that her symptoms usually resolve with Ativan that she does take at home. She received Ativan in the ED as well and that helped with her headache. Allergies: Atenolol, bupivacaine, cephalexin, diltiazem, doxazosin, lidocaine, metoprolol Medications: See [facility] Hospital Course Patient was admitted and Hematology and Neurology consults placed. Per neurology, agreed with plans for MRI and advised to start on amitriptyline qhs to help with headache prophylaxis. Patient refused medication. MRI showed No acute infarction or intracranial hemorrhage. Soft tissue density within the right maxillary sinus which appears to extend into the anterior sinus wall which measures 2 cm which is indeterminate. This may represent atypical appearing mucosal thickening however underlying lesion is not excluded. 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 Hematology planned to perform confirmatory tests for prophyria but since patients symptoms resolved overnight after being given ativan and observed, workup was discontinued. Patient presenting symptoms of CRUM, dysphagia, and ambulatory dysfunction all improved and she was discharged home in good condition. Home Meds Reported Medications Lorazepam* (Ativan*) 0.5 Mg Tablet, 0.5 MG PO NEEDED Y for ANXIETY, #30 TAB 01/17/17 Follow-up Plan 1. Take medications as needed 2. Follow up with your primary care physician in 1 week 3. Follow up with your repeater operator in 1 week 4. If symptoms worsen, please return to ED Primary Care Provider Care Physician No Primary Time spent on discharge: > 30 minutes JAMIR FARIA MD Jan 19, 2017 12:38 Home Meds Reported Medications Lorazepam* (Ativan*) 0.5 Mg Tablet, 0.5 MG PO NEEDED Y for ANXIETY, #30 TAB 01/17/17 Follow-up Plan 1. Take medications as needed 2. Follow up with your primary care physician in 1 week 3. Follow up with your repeater operator in 1 week 4. If symptoms worsen, please return to ED Primary Care Provider Care Physician No Primary JAMIR FARIA MD Jan 19, 2017 12:38
== END 2017-01-19 12:45 | disposition home or self-care (01) | DRG 103 ==
LOC: E/R 02:07 → PP2 03:07
PROVIDERS: ADMIT Family Medicine; ATTEND Family Medicine
DX: R51 Headache (principal); E80.29 Other porphyria; R13.10 Dysphagia, unspecified; D72.829 Elevated white blood cell count, unspecified; F41.9 Anxiety disorder, unspecified
CPT/HCPCS: 70551; 92610